=== PATIENT | female | born 1990 | race Two or more races ===

== ENCOUNTER 2018-03-17 14:54 | Emergency (ER) | payer MEDICAID ==
[~2018-03-17] VITALS: Ht 160 cm; Wt 122.5 kg
[2018-03-17] MEDS ORDERED: levETIRAcetam 500 MG TABLET PO ONE (15:15)
--- NOTE | 2018-03-17 15:24 | PHYS DOC ---
Adult General Chief Complaint Chief Complaint: SEIZURE HPI HPI Patient is a 27 year old female who presents with a witnessed seizure that occurred today. The patient states that she normally takes 1500 mg of Keppra twice a day. She recently moved here from [place] and in working with the insurance company it did not get refilled in a timely manner. She states that she has been out of her Keppra for approximately week and a half. She states that she did have an abrasion to her tongue but denies any other injury. She has a follow-up appointment with neurology on March 27, 2017. Review of Systems Review of Systems Constitutional: Denies fever or chills [] Eyes: Denies change in visual acuity, redness, or eye pain [] HENT: See history of present illness Respiratory: Denies cough or shortness of breath [] Cardiovascular: No additional information not addressed in HPI [] GI: Denies abdominal pain, nausea, vomiting, bloody stools or diarrhea [] : Denies dysuria or hematuria [] Musculoskeletal: Denies back pain or joint pain [] Integument: Denies rash or skin lesions [] Neurologic: See history of present illness Endocrine: Denies polyuria or polydipsia [] All other systems were reviewed and found to be within normal limits, except as documented in this note. Current Medications Current Medications Current Medications Medications (Trade) Dose Ordered Sig/Joanie Start Time Stop Time Status Last Admin Dose Admin Acetaminophen (Tylenol) 1,000 mg 1X ONCE 03/17/18 16:00 03/17/18 16:04 DC 03/17/18 16:14 1,000 MG Levetiracetam (Keppra) 1,500 mg 1X ONCE 03/17/18 15:15 03/17/18 15:31 DC Levetiracetam 1000 mg/Dextrose 110 ml @ 440 mls/hr 1X ONCE 03/17/18 16:00 03/17/18 16:14 DC 03/17/18 15:45 440 MLS/HR Allergies Allergies Allergies Coded Allergies Type Severity Reaction Last Updated Verified No Known Drug Allergies 03/17/18 No Physical Exam Physical Exam Constitutional: Well developed, well nourished, no acute distress, non-toxic appearance. [] HENT: Normocephalic, atraumatic, bilateral external ears normal, oropharynx moist, abrasion noted to the patient's left tongue Eyes: PERRLA, EOMI, conjunctiva normal, no discharge. [] Neck: Normal range of motion, no tenderness, supple, no stridor. [] Cardiovascular:Heart rate regular rhythm, no murmur [] Lungs & Thorax: Bilateral breath sounds clear to auscultation [] Abdomen: Bowel sounds normal, soft, no tenderness, no masses, no pulsatile masses. [] Skin: Warm, dry, no erythema, no rash. [] Back: No tenderness, no CVA tenderness. [] Extremities: No tenderness, no cyanosis, no clubbing, ROM intact, no edema. [] Neurologic: Alert and oriented X 3, normal motor function, normal sensory function, no focal deficits noted. [] Psychologic: Affect normal, judgement normal, mood normal. [] Current Patient Data Vital Signs Vital Signs Date Time Temp Pulse Resp B/P (MAP) Pulse Ox O2 Delivery O2 Flow Rate FiO2 03/17/18 14:54 98.2 98 16 129/64 (85) 97 Room Air 98.2 EKG EKG [] Radiology/Procedures Radiology/Procedures [] Course & Med Decision Making Course & Med Decision Making Pertinent Labs and Imaging studies reviewed. (See chart for details) []The patient was given a gram of Keppra IV in the emergency department. Dragon Disclaimer Dragon Disclaimer This electronic medical record was generated, in whole or in part, using a voice recognition dictation system. Departure Departure Impression: Primary Impression: Seizure Disposition: 01 HOME, SELF-CARE Condition: STABLE Patient Instructions: Seizure, Adult Additional Instructions: Take the medication as prescribed. Keep your follow-up appointment with your neurologist. If worsening return to the emergency department. Scripts Levetiracetam (KEPPRA) 750 Mg Tablet 1500 MG PO BID for seizure for 30 Days, #120 TAB Prov: BISI SALMON ARCHITECTURAL TECHNOLOGIST 03/17/18 BISI SALMON APRN Mar 17, 2018 15:24
[2018-03-17] MEDS ORDERED: levETIRAcetam 1,000 MG in IV DEXTROSE 5% 100ML 100 ML IV ONE (16:00)
[2018-03-17] MEDS ORDERED: ACETAMINOPHEN 500 MG TABLET PO ONE (16:00)
[2018-03-17 16:30] VITALS: BP 115/71
[2018-03-17] MEDS ORDERED: LEVE750T41 PO (16:31)
== END 2018-03-17 16:41 | disposition home or self-care (01) ==
LOC: ER 14:54
DX: S00.512A Abrasion of oral cavity, initial encounter (principal); R56.9 Unspecified convulsions; X58.XXXA Exposure to other specified factors, initial encounter; Y93.89 Activity, other specified; Y92.89 Other specified places as the place of occurrence of the external cause; Y99.8 Other external cause status
CPT/HCPCS: 36415; 80177; 96365; 99285; J1953; 99283-25

== ENCOUNTER 2018-03-31 09:46 | Emergency (ER) | payer MEDICAID ==
[~2018-03-31] VITALS: Ht 160 cm; Wt 124.7 kg
[~2018-03-31 09:46] MED LIST: LEVE750T41 PO
[2018-03-31 10:12] VITALS: BP 140/72
[2018-03-31] MEDS ORDERED: PRED20TA PO (10:28)
[2018-03-31] MEDS ORDERED: HYDR-3164 PO (10:28)
--- NOTE | 2018-03-31 10:41 | PHYS DOC ---
Past Medical History Past Medical History: Anxiety, Depression, Seizure Past Surgical History: No Surgical History Alcohol Use: None Drug Use: Marijuana Adult General Chief Complaint Chief Complaint: LOWER EXT PAIN HPI HPI Patient is a 27 year old female who presents with left leg pain. Patient has what she describes to be a burning sensation over the lateral aspect of the left thigh. She's been having symptoms over the last several days. She denies prior history of similar symptoms but does endorse a remote history of back injury and chronic back pain. No weakness. No difficulty with ambulation. Pain occurs both at rest and with activity. No fever or chills. No urinary symptoms. There are no aggravating or alleviating factors. She states the pain seems to be just underneath or inside the skin. Review of Systems Review of Systems Constitutional: Denies fever or chills Eyes: Denies change in visual acuity HENT: Denies Respiratory: Denies Cardiovascular: No additional information not addressed in HPI GI: Denies abdominal pain Musculoskeletal: Denies back pain or joint pain Integument: Denies rash or skin lesions Neurologic: Denies headache or focal neurologic complaints All other systems were reviewed and found to be within normal limits, except as documented in this note. Allergies Allergies Allergies Coded Allergies Type Severity Reaction Last Updated Verified No Known Drug Allergies 03/17/18 No Physical Exam Physical Exam Constitutional: Well developed, well nourished, no acute distress, non-toxic appearance HENT: Normocephalic, atraumatic, bilateral external ears normal, oropharynx moist Eyes: PERRLA, EOMI, conjunctiva normal Neck: Normal range of motion, no tenderness Cardiovascular:Heart rate regular rhythm, no murmur Lungs & Thorax: Bilateral breath sounds clear to auscultation Skin: Warm, dry, no erythema, no rash Extremities: Normal exam of left LE Neurologic: Alert and oriented X 3 EKG EKG [] Radiology/Procedures Radiology/Procedures [] Course & Med Decision Making Course & Med Decision Making Pertinent Labs and Imaging studies reviewed. (See chart for details) Patient was evaluated on arrival to her room. She has symptoms that are classic for neuralgia paresthetica. This condition is discussed with her and explained in detail and all of her questions are answered. Patient was placed on a short course of steroids. Tramadol was the next medicine of choice but this would interact with too many of her chronic medications so she was simply given some [place] for severe pain symptoms. Patient was advised to follow-up with her primary care doctor as needed. Carlton Disclaimer Maritzaon Disclaimer This electronic medical record was generated, in whole or in part, using a voice recognition dictation system. Departure Departure Impression: Primary Impression: Meralgia paresthetica of left side Disposition: HOME, SELF-CARE Condition: GOOD Patient Instructions: Neurapraxia Additional Instructions: Your diagnosis is Meralgia Paresthetica. There is not a good information sheet in the computer system to provide for this diagnosis. Please look it up on the internet and follow up with your primary doctor if your symptoms persist. Scripts Hydrocodone/Apap 5-325 (NORCO 5-325 TABLET) 1 Each Tablet 1-2 EACH PO PRN Q6HRS PRN for SEVERE PAIN, #15 as needed for pain Prov: NAV MATTHEW DO 03/31/18 Prednisone (PREDNISONE) 20 Mg Tablet 20 MG PO UD, #20 TAB Take 3 tablets with breakfast for 3 days. Then take 2 tablets daily with breakfast for 3 days. Then take one tablet with breakfast for 3 days. Then take one half tablet until gone Prov: NAV MATTHEW DO 03/31/18 NAV MATTHEW DO Mar 31, 2018 10:40
== END 2018-03-31 10:35 | disposition home or self-care (01) ==
LOC: ER 09:46
DX: G57.12 Meralgia paresthetica, left lower limb (principal); F41.9 Anxiety disorder, unspecified; F32.9 Major depressive disorder, single episode, unspecified
CPT/HCPCS: 99283

== ENCOUNTER 2018-04-10 19:20 | Observation (INO) | payer MEDICAID ==
[~2018-04-10] VITALS: Ht 160 cm; Wt 131.6 kg
[~2018-04-10 19:20] MED LIST changes: +HYDR-3164 PO; +PRED20TA PO
[2018-04-10] MEDS ORDERED: IV NORMAL SALINE 500ML BAG 500 ML IV ONE (20:30)
[2018-04-10 20:32] LABS: BASO % 0 % (0-3); EOS % 0 % (0-3); HEMATOCRIT 41.4 % (36.0-47.0); HEMOGLOBIN 13.8 g/dL (12.0-15.5); LYMPH # 0.7 x10^3/uL (1.0-4.8); LYMPH % 8 % (24-48); MEAN CORPUSCULAR HEMOGLOBIN 30 pg (25-35); MEAN CORPUSCULAR HGB CONC 33 g/dL (31-37); MEAN CORPUSCULAR VOLUME 89 fL (79-100); MONO # 0.2 x10^3/uL (0.0-1.1); MONO % 3 % (0-9); NEUT # 7.4 x10^3uL (1.8-7.7); NEUT % 89 % (31-73); PLATELET COUNT 243 x10^3/uL (140-400); RED BLOOD COUNT 4.66 x10^6/uL (3.50-5.40); RED CELL DISTRIBUTION WIDTH 14.4 % (11.5-14.5); WHITE BLOOD COUNT 8.3 x10^3/uL (4.0-11.0)
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
[2018-04-10 20:39] LABS: CALCIUM 8.8 mg/dL (8.5-10.1); CREATININE 0.7 mg/dL (0.6-1.0); GFR 100.4; POTASSIUM 3.4 mmol/L (3.5-5.1)
[2018-04-10 20:45] LABS: ALBUMIN 3.4 g/dL (3.4-5.0); ALBUMIN/GLOBULIN RATIO 0.8 (1.0-1.7); TOTAL BILIRUBIN 0.7 mg/dL (0.2-1.0); TOTAL PROTEIN 7.8 g/dL (6.4-8.2)
--- NOTE | 2018-04-10 21:57 | EKG ---
[facility] [address] [place] [address] Test Date: 2018-04-10 Test Time: 19:44:54 Pat Name: DAVID AYALA Department: Room: Gender: F Juvenile Court Judge: : 1990 Requested By: JAMARCUS ARNOLD Order Number: [id number] Reading MD: Measurements Intervals [place] Rate: 85 P: 154 IN: 148 QRS: 40 QRSD: 82 T: 9 QT: 362 QTc: 436 Interpretive Statements SUPRAVENTRICULAR RHYTHM ST & T ABNORMALITY, CONSIDER RECENT HIGH LATERAL MYOCARDIAL OR PERICARDIAL DAMAGE NON SPECIFIC ST DEPRESSION ABNORMAL ECG No previous ECG available for comparison
[2018-04-10 23:07] LABS: BILIRUBIN,URINE NEGATIVE (NEG); CLARITY,URINE CLOUDY; COLOR,URINE YELLOW; NITRITE,URINE NEGATIVE (NEG); PROTEIN,URINE NEGATIVE (NEG-TRACE)
[2018-04-10 23:11] LABS: RBC,URINE 0 /HPF (0-2)
[2018-04-10 23:12] LABS: BACTERIA,URINE 0 /HPF (0-FEW); SQUAMOUS EPITHELIAL CELL,UR OCC /LPF
[2018-04-10 23:20] LABS: AMPHETAMINE/METHAMPHETAMINE NEG (NEG); BARBITURATES NEG (NEG); BENZODIAZEPINES NEG (NEG); CANNABINOIDS POS (NEG); COCAINE NEG (NEG); METHADONE NEG (NEG); OPIATES NEG (NEG); PHENCYCLIDINE NEG (NEG)
[2018-04-11] VITALS (8 sets, daily range): BP systolic 91–114; BP diastolic 49–68
--- NOTE | 2018-04-11 | RAD ---
CT head without contrast PQRS statement: CT scans at this facility use dose reduction including either automated exposure control, iterative reconstructions, and /or weight based radiation dosing via mA and kV modification when appropriate to reduce radiation dose to as low as reasonably achievable. HISTORY: Seizure. TECHNIQUE: [address] imaging skull base to vertex. FINDINGS: No intracranial hemorrhage, mass, hydrocephalus, extra-axial fluid collections or infarction. No acute ischemic change. Orbits, mastoids, paranasal sinuses and bones are unremarkable. IMPRESSION: No acute intracranial CT abnormality. Electronically signed by: Wili Verduzco MD (04/10/2018 11:55 PM) [id number]
[2018-04-11] MEDS ORDERED: ACET325T9 PO ×2 (01:05)
[2018-04-11] MEDS: ACETAMINOPHEN 325 MG TABLET. PO PRN ×3 (01:26→16:45)
[2018-04-11] MEDS: levETIRAcetam 500 MG TABLET PO SCH ×3 (01:26→21:42)
[2018-04-11 03:45] LABS: BASO % 0 % (0-3); EOS % 0 % (0-3); HEMATOCRIT 36.6 % (36.0-47.0); HEMOGLOBIN 12.2 g/dL (12.0-15.5); LYMPH # 0.9 x10^3/uL (1.0-4.8); LYMPH % 16 % (24-48); MEAN CORPUSCULAR HEMOGLOBIN 30 pg (25-35); MEAN CORPUSCULAR HGB CONC 34 g/dL (31-37); MEAN CORPUSCULAR VOLUME 88 fL (79-100); MONO # 0.3 x10^3/uL (0.0-1.1); MONO % 5 % (0-9); NEUT # 4.5 x10^3uL (1.8-7.7); NEUT % 78 % (31-73); PLATELET COUNT 229 x10^3/uL (140-400); RED BLOOD COUNT 4.15 x10^6/uL (3.50-5.40); RED CELL DISTRIBUTION WIDTH 14.2 % (11.5-14.5); WHITE BLOOD COUNT 5.8 x10^3/uL (4.0-11.0)
[2018-04-11 04:00] LABS: CALCIUM 8.1 mg/dL (8.5-10.1); CREATININE 0.7 mg/dL (0.6-1.0); GFR 100.4
[2018-04-11 04:10] LABS: POTASSIUM 2.9 mmol/L (3.5-5.1)
[2018-04-11] MEDS ORDERED: POTASSIUM CHLORIDE 20 MEQ TABLET.ER. PO ONE ×2 (04:30→16:45)
--- NOTE | 2018-04-11 12:54 | SSS ---
ADMIT DATE: 04/11/2018 CHIEF COMPLAINT: Seizure. HISTORY OF PRESENT ILLNESS: The patient is a pleasant 27-year-old female who has a history of seizures. They seemed to me to be pseudoseizure. She had 15 yesterday and came in for an evaluation. When she got to the ER, she did not have any more seizures. Surprisingly, she is on Keppra. I suspect they have put her on that to be safe. I discussed the case with the ER physician. We have admitted her. We have consulted Neurology this morning. I have examined her where she is better. I plan to discharge if okay with Neurology. 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 ALLERGIES: None. FAMILY HISTORY: Hypertension. SOCIAL HISTORY: She does not drink, smoke or take drugs. She is in nursing school. MEDICATIONS: She is on [place], Tylenol, Keppra 1500 b.i.d. and prednisone. REVIEW OF SYSTEMS: GENERAL: No history of weight change, weakness or fevers. SKIN: No bruising, hair changes or rashes. EYES: No blurred, double or loss of vision. NOSE AND THROAT: No history of nosebleeds, hoarseness or sore throat. HEART: No history of palpitations, chest pain or shortness of breath on exertion. LUNGS: Denies cough, hemoptysis, wheezing or shortness of breath. GASTROINTESTINAL: Denies changes in appetite, nausea, vomiting, diarrhea or constipation. GENITOURINARY: No history of frequency, urgency, hesitancy or nocturia. NEUROLOGIC: Denies history of numbness, tingling, tremor or weakness. PSYCHIATRIC: No history of panic, anxiety or depression. ENDOCRINE: No history of heat or cold intolerance, polyuria or polydipsia. EXTREMITIES: Denies muscle weakness, joint pain, pain on walking or stiffness. PHYSICAL EXAMINATION: VITAL SIGNS: Temperature afebrile, pulse 74, respirations 18, blood pressure 132/90. GENERAL: She is alert, cooperative, in no apparent distress. HEART: Normal S1, S2. LUNGS: Clear. ABDOMEN: Soft. EXTREMITIES: No edema. SKIN: No rashes. ENDOCRINE: No thyromegaly. LYMPHATICS: No cervical nodes. HEMATOPOIETIC: No bruising. PSYCHIATRIC: She is anxious. NEUROLOGIC: No focal deficits. LABORATORY DATA: Her Hematology is normal. Her electrolytes were normal other than a low potassium, which I have replaced. ASSESSMENT AND PLAN: Resolving seizures, suspect probable pseudoseizures. We will go ahead and consult Neurology, but I suspect will be allowed to go home this afternoon. DISPOSITION: Home. ACTIVITY: As tolerated. DIET: Low sodium. MEDICATIONS: Please see MRAD. TOTAL TIME: 32 minutes. DARA SIMEON DO DR: NISA/hakan JOB#: [id number] / [id number]
--- NOTE | 2018-04-11 15:47 | NUR ---
Discussed discharge with patient. Patient kind of upset, wanting us to look into cardiac history before discharge. Says she has been struggling with chest pain and "chest heart fluttering" and wants us to look into it. Says EMS told her they could see "heart fluttering" on the monitor. I looked at ED note, says patient had PVC's in ER, I educated her on PVC's and low K+ and told her there was a possible connection between the 2. I did pass all of this all on to Dr. León, he feels at this point she is medically stable and there are no further orders necessary at this point. Patient also frustrated, says she feels she was not able to vocalize all of her concerns to Dr. Hirsch. Really wanted Dr. Hirsch to know she was having leg numbness and burning on her L upper thigh. I discussed this with Dr. Hirsch, and let Dr. Hirsch patient would feel more comfortable leaving tomorrow. Dr. Hirsch agreed with Dr. León, said ok to do EEG in outpatient if unable to do today. Asked Dr. León if we could recheck K+, we did, it is 3.3, ok to go ahead and replace again. Will notify Dr. León of patient's concerns.
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
--- NOTE | 2018-04-11 16:06 | NUR ---
Patient now complaining of new chest pain, STAT EKG ordered and ICU supercharger mechanic notified. manager perioperative Norma on unit, she was notified as well.
--- NOTE | 2018-04-11 16:19 | EKG ---
[facility] [address] [place] [address] Test Date: 2018-04-11 Test Time: 16:14:24 Pat Name: DAVID AYALA Department: Room: 654 1 Gender: F Cap Sizer: CHAVA : 1990 Requested By: DARA SIMEON Order Number: [id number] Reading MD: Measurements Intervals [place] Rate: 71 P: 28 ID: [id number] QRS: 80 QRSD: 88 T: 31 QT: 442 QTc: 486 Interpretive Statements SINUS RHYTHM QRS(T) CONTOUR ABNORMALITY CONSIDER ANTEROSEPTAL MYOCARDIAL DAMAGE PROLONGED QT POSSIBLY ABNORMAL ECG RI6.01 Unconfirmed report No previous ECG available for comparison
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
--- NOTE | 2018-04-11 17:43 | NUR ---
Pt states she has chest discomfort over her left breast area. This pain is reproducible when area rubbed. Pt states she had several grand mal seizures yesterday. Explained to patient that the pain she is experiencing may be muscle pain from the seizures yesterday. Explained the EKG looked normal and would get Troponin to check heart muscle. Pt staying on the 6S. Addendum: 04/11/18 at 1747 by INGRID BUSTILLOS RN Amended: Links added.
--- NOTE | 2018-04-11 19:09 | NUR ---
Around 183, as EEG was being finished, patient called to say she was having a seizure. Was able to talk while having seizure and follow commands. Paged Dr. Hirsch per protocol to let her know.
[2018-04-12 03:10] VITALS: BP 94/51
[2018-04-12 07:05] VITALS: BP 103/53
[2018-04-12 07:56] LABS: CALCIUM 8.7 mg/dL (8.5-10.1); CREATININE 0.5 mg/dL (0.6-1.0)
[2018-04-12 08:04] LABS: CHOLESTEROL/HDL RATIO 2.7
--- NOTE | 2018-04-12 09:05 | NUR ---
MADDY phoned [facility] team for assessment and evaluation. Jeremy will come in to see pt. Addendum: 04/12/18 at 1102 by HARSHAL CASTAÑEDA MADDY following. Pt will f/u with [facility] jamin vt.
--- NOTE | 2018-04-12 09:13 | PDOC2 ---
CARDIAC CONSULT DATE OF CONSULT Date of Consult DATE: 04/12/18 TIME: 09:06 REASON FOR CONSULT Reason for Consult: One week of fluttering in chest and chest pain. REFERRING PHYSICIAN Referring Physician: Dr. León SOURCE Source: Chart review, Patient HISTORY OF PRESENT ILLNESS HISTORY OF PRESENT ILLNESS This is a 27 yo female who presented secondary to recurrent seizures and chest pain. Reports up to 15 seizures on day of arrival. Chest pain has been present for the last week. Located in her central chest initially. Now located left lateral breast area. Describes as stabbing in nature. Worsened with deep breath. Breathing limited due to pain, but not specifically short of breath. No dizziness, diaphoresis, nausea/vomiting. Has had intermittent palpitations; more frequent over the last week. Occurs at rest and last approximately 20 seconds and resolves without intervention. Feels as if she is having anxiety. Also complaining of burning pain in her left thigh with some mild swelling. PAST MEDICAL HISTORY Cardiovascular: No pertinent hx Pulmonary: No pertinent hx CENTRAL NERVOUS SYSTEM: Seizure GI: No pertinent hx Heme/Onc: No pertinent hx Psych: Anxiety Musculoskeletal: low back pain Rheumatologic: No pertinent hx Infectious disease: No pertinent hx ENT: No pertinent hx Renal/: No pertinent hx Endocrine: No pertinent hx Dermatology: No pertinent hx PAST SURGICAL HISTORY Past Surgical History: No pertinent history FAMILY HISTORY Family History: Heart Disease SOCIAL HISTORY Smoke: No ALCOHOL: none Drugs: Marijuana Lives: with Family CURRENT MEDICATIONS CURRENT MEDICATIONS Current Medications Medications (Trade) Dose Ordered Sig/Joanie Route PRN Reason Start Time Stop Time Status Last Admin Dose Admin Potassium Chloride (Klor-Con) 40 meq 1X ONCE PO 04/11/18 16:45 04/11/18 16:46 DC 04/11/18 16:45 ALLERGIES ALLERGIES: Coded Allergies: No Known Drug Allergies (Unverified , 03/17/18) ROS Review of System 14 point ROS conducted with pertinent positives noted above in HPI. PHYSICAL EXAM General: Alert, Oriented X3, Cooperative, No acute distress HEENT: Atraumatic, Mucous membr. moist/pink Lungs: Clear to auscultation, Normal air movement Heart: Regular rate, Normal S1, Normal S2, No murmurs Abdomen: Soft, No tenderness Extremities: No edema, Normal pulses Skin: No significant lesion Neuro: Normal speech, Sensation intact Psych/Mental Status: Mental status NL, Mood NL MUSCULOSKELETAL: Osteoarthritic changes both hands VITALS VITALS Vital Signs Date Time Temp Pulse Resp B/P (MAP) Pulse Ox O2 Delivery O2 Flow Rate FiO2 04/12/18 07:05 97.6 61 17 103/53 (70) 95 Room Air 97.6 LABS Lab: Laboratory Tests Test 04/11/18 13:50 04/11/18 16:30 04/12/18 06:05 Potassium Level 3.3 mmol/L (3.5-5.1) 4.0 mmol/L (3.5-5.1) Magnesium Level 2.0 mg/dL (1.8-2.4) Troponin I Quantitative < 0.017 ng/mL (0.000-0.055) < 0.017 ng/mL (0.000-0.055) Sodium Level 143 mmol/L (136-145) Chloride Level 108 mmol/L (98-107) Carbon Dioxide Level 27 mmol/L (21-32) Anion Gap 8 (6-14) Blood Urea Nitrogen 8 mg/dL (7-20) Creatinine 0.5 mg/dL (0.6-1.0) Estimated GFR (Cockcroft-Gault) 148.0 Glucose Level 92 mg/dL (70-99) Calcium Level 8.7 mg/dL (8.5-10.1) Triglycerides Level 41 mg/dL (0-150) Cholesterol Level 140 mg/dL (0-200) LDL Cholesterol, Calculated 80 mg/dL (0-100) VLDL Cholesterol, Calculated 8 mg/dL (0-40) Non-HDL Cholesterol Calculated 88 mg/dL (0-129) HDL Cholesterol 52 mg/dL (40-60) Cholesterol/HDL Ratio 2.7 ASSESSMENT/PLAN ASSESSMENT/PLAN 1. Seizures; on Keppra. 2. Chest pain, noncardiac. AMI ruled out. Most probably pleuritic as pain worsened with deep breathing. 3. Palpitations; possibly anxiety related. Patient reports palpitations while on unit; no arrhythmias correlating on telemetry. 4. Hypokalemia; replaced 5. Anxiety Recommendations Will check TSH. If palpitations recurrent, could consider outpatient event monitor to rule out tachyarrhythmias and echocardiogram when she is able to get [place] Medicaid. Management as per IM Continued treatment of seizures as per neurology Supportive care IRENE HONG APRN Apr 12, 2018 09:13
[2018-04-12] MEDS: levETIRAcetam 500 MG TABLET PO SCH (09:55)
[2018-04-12 10:40] VITALS: BP 106/62
--- NOTE | 2018-04-12 11:36 | CARD ---
MR#: [id number] Date of Study: 04/12/2018 Ordering Physician: JOSE GANDHI, Referring Physician: Guille CROW: Isabella Baileyluiserica APPROVED REPORT EXAM: Two-dimensional and M-mode echocardiogram with Doppler and color Doppler. Other Information Quality : GoodHR: 61bpm Rhythm : NSR INDICATION Chest Pain 2D DIMENSIONS RVDd2.6 (2.9-3.5cm)Left Atrium(2D)3.6 (1.6-4.0cm) IVSd1.1 (0.7-1.1cm)Aortic Root(2D)2.4 (2.0-3.7cm) LVDd5.0 (3.9-5.9cm)LVOT Diameter2.2 (1.8-2.4cm) PWd1.2 (0.7-1.1cm)LVDs3.6 (2.5-4.0cm) FS (%) 28.7 %SV66.2 ml LVEF(%)55.0 (>50%) Aortic Valve AoV Peak Elie.157.1cm/sAoV VTI32.8cm AO Peak GR.9.9mmHgLVOT Peak Elie.104.6cm/s LVOT VTI 22.12cmAO Mean GR.5mmHg KANG (VMAX)1.32lh4HND (VTI)2.48cm2 Mitral Valve MV E Pxxxuhlo068.2cm/sMV DECEL [id number] MV A Wylxaoih03.0cm/sMV YSY80fp E/A Ratio1.5MVA (PHT)3.39cm2 TDI E/Lateral E'8.1E/Medial E'10.3 Pulmonary Valve PV Peak Itsujbyw845.6cm/sPV Peak Grad.4mmHg Tricuspid Valve TR P. [id number]/sRAP [id number] TR Peak Gr.00tiJdKOYX79tpMq Pulmonary Vein S1 Cvovsrwg88.7cm/sD2 Yzzxmbxs36.8cm/s PVa [id number] LEFT VENTRICLE The left ventricle is normal size. There is borderline concentric left ventricular hypertrophy. The l eft ventricular systolic function is normal. The Ejection Fraction is 55-60%. There is normal LV segm ental wall motion. The left ventricular diastolic function and filling is normal for age. RIGHT VENTRICLE The right ventricle is normal size. There is normal right ventricular wall thickness. The right ventr icular systolic function is normal. ATRIA The left atrium size is normal. The right atrium size is normal. The interatrial septum is intact wit h no evidence for an atrial septal defect or patent foramen ovale as noted on 2-D or Doppler imaging. AORTIC VALVE The aortic valve is normal in structure and function. Doppler and Color Flow revealed no significant aortic regurgitation. There is no significant aortic valvular stenosis. MITRAL VALVE The mitral valve is normal in structure and function. There is no evidence of mitral valve prolapse. There is no mitral valve stenosis. Doppler and Color-flow revealed trace mitral regurgitation. TRICUSPID VALVE The tricuspid valve is normal in structure and function. Doppler and Color Flow revealed trace tricus pid regurgitation. There is no tricuspid valve stenosis. PULMONIC VALVE The pulmonic valve is not well visualized. Doppler and Color Flow revealed no pulmonic valvular regur gitation. GREAT VESSELS The aortic root is normal in size. The IVC is normal in size and collapses >50% with inspiration. PERICARDIAL EFFUSION There is no evidence of significant pericardial effusion. Critical Notification Critical Value: No <Conclusion> The left ventricular systolic function is normal. The Ejection Fraction is 55-60%. There is normal LV segmental wall motion. Trace mitral regurgitation. Trace tricuspid regurgitation. There is no evidence of significant pericardial effusion. Signed by : Jacobo Segal, Electronically Approved : 04/12/2018 11:33:56
[2018-04-12] MEDS ORDERED: CITALOPRAM 20 MG TABLET. PO SCH (12:45)
--- NOTE | 2018-04-12 12:51 | PDOC ---
PROGRESS NOTES Chief Complaint Chief Complaint pseudo seizure History of Present Illness History of Present Illness Patient seen and examined this morning. 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 She seems to be doing great. Nurses report that they were called in yesterday because she said she was having a seizure. Discussed importance of illicit drug abstinence and probable discharge today. Vitals Vitals Vital Signs Date Time Temp Pulse Resp B/P (MAP) Pulse Ox O2 Delivery O2 Flow Rate FiO2 04/12/18 10:40 97.5 68 18 106/62 (77) 97 Room Air 97.5 Physical Exam General: Alert, Oriented X3, Cooperative, No acute distress Heart: Regular rate, Normal S1, Normal S2, No murmurs Abdomen: Soft, No tenderness Extremities: No clubbing, No cyanosis, No edema, Normal pulses Skin: No rashes, No significant lesion Labs LABS Laboratory Tests Test 04/11/18 13:50 04/11/18 16:30 04/12/18 06:05 Potassium Level 3.3 mmol/L (3.5-5.1) 4.0 mmol/L (3.5-5.1) Magnesium Level 2.0 mg/dL (1.8-2.4) Troponin I Quantitative < 0.017 ng/mL (0.000-0.055) < 0.017 ng/mL (0.000-0.055) Sodium Level 143 mmol/L (136-145) Chloride Level 108 mmol/L (98-107) Carbon Dioxide Level 27 mmol/L (21-32) Anion Gap 8 (6-14) Blood Urea Nitrogen 8 mg/dL (7-20) Creatinine 0.5 mg/dL (0.6-1.0) Estimated GFR (Cockcroft-Gault) 148.0 Glucose Level 92 mg/dL (70-99) Calcium Level 8.7 mg/dL (8.5-10.1) Triglycerides Level 41 mg/dL (0-150) Cholesterol Level 140 mg/dL (0-200) LDL Cholesterol, Calculated 80 mg/dL (0-100) VLDL Cholesterol, Calculated 8 mg/dL (0-40) Non-HDL Cholesterol Calculated 88 mg/dL (0-129) HDL Cholesterol 52 mg/dL (40-60) Cholesterol/HDL Ratio 2.7 Review of Systems Review of Systems heart: denies cp lung: denies soa Assessment and Plan Assessmemt and Plan Assessment: 1. Pseudo-seizure 2. obesity 3. history of depression Plan: 1. probable discharge today 2, PT/OT 3. seizure medications per neurology 4. labs 5. appreciate subspecialty input Comment Review of Relevant I have reviewed the following items ruddy (where applicable) has been applied. Labs Laboratory Tests Test 04/10/18 19:55 04/10/18 22:55 04/11/18 02:55 04/11/18 13:50 White Blood Count 8.3 x10^3/uL (4.0-11.0) 5.8 x10^3/uL (4.0-11.0) Red Blood Count 4.66 x10^6/uL (3.50-5.40) 4.15 x10^6/uL (3.50-5.40) Hemoglobin 13.8 g/dL (12.0-15.5) 12.2 g/dL (12.0-15.5) Hematocrit 41.4 % (36.0-47.0) 36.6 % (36.0-47.0) Mean Corpuscular Volume 89 fL (79-100) 88 fL (79-100) Mean Corpuscular Hemoglobin 30 pg (25-35) 30 pg (25-35) Mean Corpuscular Hemoglobin Concent 33 g/dL (31-37) 34 g/dL (31-37) Red Cell Distribution Width 14.4 % (11.5-14.5) 14.2 % (11.5-14.5) Platelet Count 243 x10^3/uL (140-400) 229 x10^3/uL (140-400) Neutrophils (%) (Auto) 89 % (31-73) 78 % (31-73) Lymphocytes (%) (Auto) 8 % (24-48) 16 % (24-48) Monocytes (%) (Auto) 3 % (0-9) 5 % (0-9) Eosinophils (%) (Auto) 0 % (0-3) 0 % (0-3) Basophils (%) (Auto) 0 % (0-3) 0 % (0-3) Neutrophils # (Auto) 7.4 x10^3uL (1.8-7.7) 4.5 x10^3uL (1.8-7.7) Lymphocytes # (Auto) 0.7 x10^3/uL (1.0-4.8) 0.9 x10^3/uL (1.0-4.8) Monocytes # (Auto) 0.2 x10^3/uL (0.0-1.1) 0.3 x10^3/uL (0.0-1.1) Eosinophils # (Auto) 0.0 x10^3/uL (0.0-0.7) 0.0 x10^3/uL (0.0-0.7) Basophils # (Auto) 0.0 x10^3/uL (0.0-0.2) 0.0 x10^3/uL (0.0-0.2) Sodium Level 139 mmol/L (136-145) 141 mmol/L (136-145) Potassium Level 3.4 mmol/L (3.5-5.1) 2.9 mmol/L (3.5-5.1) 3.3 mmol/L (3.5-5.1) Chloride Level 102 mmol/L (98-107) 103 mmol/L (98-107) Carbon Dioxide Level 25 mmol/L (21-32) 28 mmol/L (21-32) Anion Gap 12 (6-14) 10 (6-14) Blood Urea Nitrogen 9 mg/dL (7-20) 11 mg/dL (7-20) Creatinine 0.7 mg/dL (0.6-1.0) 0.7 mg/dL (0.6-1.0) Estimated GFR (Cockcroft-Gault) 100.4 100.4 BUN/Creatinine Ratio 13 (6-20) Glucose Level 85 mg/dL (70-99) 111 mg/dL (70-99) Calcium Level 8.8 mg/dL (8.5-10.1) 8.1 mg/dL (8.5-10.1) Total Bilirubin 0.7 mg/dL (0.2-1.0) Aspartate Amino Transf (AST/SGOT) 19 U/L (15-37) Alanine Aminotransferase (ALT/SGPT) 27 U/L (14-59) Alkaline Phosphatase 72 U/L (46-116) Total Protein 7.8 g/dL (6.4-8.2) Albumin 3.4 g/dL (3.4-5.0) Albumin/Globulin Ratio 0.8 (1.0-1.7) Urine Color Yellow Urine Clarity Cloudy Urine pH 6.0 Urine Specific [place] >=1.030 Urine Protein Negative mg/dL (NEG-TRACE) Urine Glucose (UA) Negative mg/dL (NEG) Urine Ketones (Stick) Trace mg/dL (NEG) Urine Blood Negative (NEG) Urine Nitrite Negative (NEG) Urine Bilirubin Negative (NEG) Urine Urobilinogen Dipstick 1.0 mg/dL (0.2 mg/dL) Urine Leukocyte Esterase Negative (NEG) Urine RBC 0 /HPF (0-2) Urine WBC 1-4 /HPF (0-4) Urine Squamous Epithelial Cells Occ /LPF Urine Bacteria 0 /HPF (0-FEW) Urine Mucus Mod /LPF Urine Opiates Screen Neg (NEG) Urine Methadone Screen Neg (NEG) Urine Barbiturates Neg (NEG) Urine Phencyclidine Screen Neg (NEG) Urine Amphetamine/Methamphetamine Neg (NEG) Urine Benzodiazepines Screen Neg (NEG) Urine Cocaine Screen Neg (NEG) Urine Cannabinoids Screen Pos (NEG) Urine Ethyl Alcohol Neg (NEG) Magnesium Level 2.0 mg/dL (1.8-2.4) Test 04/11/18 16:30 04/12/18 06:05 Troponin I Quantitative < 0.017 ng/mL (0.000-0.055) < 0.017 ng/mL (0.000-0.055) Sodium Level 143 mmol/L (136-145) Potassium Level 4.0 mmol/L (3.5-5.1) Chloride Level 108 mmol/L (98-107) Carbon Dioxide Level 27 mmol/L (21-32) Anion Gap 8 (6-14) Blood Urea Nitrogen 8 mg/dL (7-20) Creatinine 0.5 mg/dL (0.6-1.0) Estimated GFR (Cockcroft-Gault) 148.0 Glucose Level 92 mg/dL (70-99) Calcium Level 8.7 mg/dL (8.5-10.1) Triglycerides Level 41 mg/dL (0-150) Cholesterol Level 140 mg/dL (0-200) LDL Cholesterol, Calculated 80 mg/dL (0-100) VLDL Cholesterol, Calculated 8 mg/dL (0-40) Non-HDL Cholesterol Calculated 88 mg/dL (0-129) HDL Cholesterol 52 mg/dL (40-60) Cholesterol/HDL Ratio 2.7 Laboratory Tests Test 04/11/18 13:50 04/11/18 16:30 04/12/18 06:05 Potassium Level 3.3 mmol/L (3.5-5.1) 4.0 mmol/L (3.5-5.1) Magnesium Level 2.0 mg/dL (1.8-2.4) Troponin I Quantitative < 0.017 ng/mL (0.000-0.055) < 0.017 ng/mL (0.000-0.055) Sodium Level 143 mmol/L (136-145) Chloride Level 108 mmol/L (98-107) Carbon Dioxide Level 27 mmol/L (21-32) Anion Gap 8 (6-14) Blood Urea Nitrogen 8 mg/dL (7-20) Creatinine 0.5 mg/dL (0.6-1.0) Estimated GFR (Cockcroft-Gault) 148.0 Glucose Level 92 mg/dL (70-99) Calcium Level 8.7 mg/dL (8.5-10.1) Triglycerides Level 41 mg/dL (0-150) Cholesterol Level 140 mg/dL (0-200) LDL Cholesterol, Calculated 80 mg/dL (0-100) VLDL Cholesterol, Calculated 8 mg/dL (0-40) Non-HDL Cholesterol Calculated 88 mg/dL (0-129) HDL Cholesterol 52 mg/dL (40-60) Cholesterol/HDL Ratio 2.7 Medications Current Medications Lorazepam (Ativan) 2 mg 1X ONCE IV Last administered on 04/10/18at 20:59; Start 04/10/18 at 20:30; Stop 04/10/18 at 20:31; Status DC Sodium Chloride 500 ml @ 500 mls/hr 1X ONCE IV Last administered on at 21:02; Start 04/10/18 at 20:30; Stop 04/10/18 at 21:29; Status DC Levetiracetam (Keppra) 1,500 mg BID PO Last administered on 04/12/18at 09:55; Start 04/11/18 at 01:15 Acetaminophen (Tylenol) 650 mg PRN Q6HRS PRN PO Fever Last administered on at 16:45; Start 04/11/18 at 01:15 Potassium Chloride (Klor-Con) 40 meq 1X ONCE PO Last administered on at 04:48; Start 04/11/18 at 04:30; Stop 04/11/18 at 04:32; Status DC Potassium Chloride (Klor-Con) 40 meq 1X ONCE PO Last administered on at 16:45; Start 04/11/18 at 16:45; Stop 04/11/18 at 16:46; Status DC Citalopram Hydrobromide (CeleXA) 20 mg DAILY PO Last administered on 04/12/18at 12:43; Start 04/12/18 at 12:45 Active Scripts Active Covert 5-325 Tablet (Acetaminophen/Hydrocodone Bitart) 1 Each Tablet 1-2 Each PO PRN Q6HRS PRN as needed for pain Prednisone 20 Mg Tablet 20 Mg PO UD Take 3 tablets with breakfast for 3 days. Then take 2 tablets daily with breakfast for 3 days. Then take one tablet with breakfast for 3 days. Then take one half tablet until gone Keppra (Levetiracetam) 750 Mg Tablet 1,500 Mg PO BID 30 Days Reported Tylenol (Acetaminophen) 325 Mg Tablet 325 Mg PO PRN PRN Tylenol (Acetaminophen) 325 Mg Tablet 1-2 Tab PO QID Vitals/I & O Vital Sign - Last 24 Hours 04/11/18 04/11/18 04/11/18 04/11/18 15:30 16:14 19:10 20:00 Temp 98.0 97.5 97.7 98.0 97.5 97.7 Pulse 68 72 71 Resp 20 18 B/P (MAP) 114/68 (83) 102/58 (73) 109/54 (72) Pulse Ox 97 98 97 O2 Delivery Room Air Room Air Room Air Room Air 04/11/18 04/12/18 04/12/18 04/12/18 23:10 03:10 07:05 08:00 Temp 97.9 97.9 97.6 97.9 97.9 97.6 Pulse 66 67 61 Resp 18 18 17 B/P (MAP) 107/52 (70) 94/51 (65) 103/53 (70) Pulse Ox 97 96 95 O2 Delivery Room Air Room Air Room Air Room Air 1/30/19 10:40 Temp 97.5 97.5 Pulse 68 Resp 18 B/P (MAP) 106/62 (77) Pulse Ox 97 O2 Delivery Room Air Intake and Output 04/11/18 04/11/18 04/12/18 15:01 23:01 07:01 Intake Total 320 ml 400 ml 400 ml Output Total 700 ml Balance 320 ml 400 ml -300 ml DARA SIMEON III DO Apr 12, 2018 12:50
--- NOTE | 2018-04-12 15:00 | RAD ---
Left Lower extremity venous Doppler. 04/12/2018 HISTORY: Left lower extremity pain and edema COMPARISON: None FINDINGS: Grayscale, Color and Doppler analysis of the Left Lower extremity deep venous system was performed with serial graded compression and augmentation. The left common femoral, femoral, and popliteal veins are widely patent with normal color Doppler imaging. Limited images of the left calf veins are unremarkable. IMPRESSION: No evidence of DVT in the left lower extremity. Electronically signed by: Jeremy Henderson MD (04/12/2018 2:55 PM) [facility]
[2018-04-12] MEDS: ACETAMINOPHEN 325 MG TABLET. PO PRN (15:20)
[2018-04-12 15:24] VITALS: BP 105/65
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
--- NOTE | 2018-04-12 16:33 | EEG ---
DATE OF SERVICE: 04/11/2018 ELECTROENCEPHALOGRAM NUMBER: [id number]. OBJECTIVE: This is a 27-year-old female patient with history of seizure or seizure like episodes and cannabinoids positive test. EEG was requested to evaluate seizure activity. METHODS: Twenty electrodes were applied according to the international 10-20 electrode placement system. EKG monitoring, hyperventilation, intermittent photic stimulation, monopolar and bipolar montages are routinely utilized. The record was obtained on a digital system with video monitoring. MEDICATION: Keppra. FINDINGS: 1. Background: The patient was recorded in the awake, drowsy, and sleep states. The overall background amplitude is 10-40 microvolts. A posterior dominant rhythm of 9-10 Hz is observed. 2. Abnormalities: No specific epileptiform discharge or electrographic seizure is seen. No focal or diffuse slowing. 3. Activation: Hyperventilation was performed with good efforts and normal response. Intermittent photic stimulation was performed with photic driving. No specific epileptiform discharge or electrographic seizure induced by hyperventilation or intermittent photic stimulation. IMPRESSION: This electroencephalogram is a normal study for the awake, drowsy, and sleep states. No focal, lateralizing, specific epileptiform discharge, or electrographic seizure is seen. EDWAR GILL MD DR: JACLYN/hakna JOB#: [id number] / [id number] JORDAN
--- NOTE | 2018-04-12 18:51 | NUR ---
Discharge Note: DAVID AYALA [address] Discharge instructions and discharge home medications reviewed with patient and a copy given. All questions have been answered and understanding verbalized. The following instructions and handouts were given: Seizure easy to read, EEG handout. gave instruction for clinic ff up. Discontinued lines and drains: peripheral IV catheter intact.Patient tolerated removal, no complications noted. Patient discharged to home with self care via wheel chair using [facility] at 1740.
[2018-04-13] MEDS ORDERED: CITALOPRAM 20 MG TABLET. PO SCH (09:00)
== END 2018-04-12 17:40 | disposition home or self-care (01) ==
LOC: ER 19:20 → 6 SOUTH 22:57
PROVIDERS: ADMIT Internal Medicine; ATTEND Internal Medicine
DX: G40.909 Epilepsy, unspecified, not intractable, without status epilepticus (principal); F41.9 Anxiety disorder, unspecified; E87.6 Hypokalemia; F12.90 Cannabis use, unspecified, uncomplicated; F44.5 Conversion disorder with seizures or convulsions; E66.01 Morbid (severe) obesity due to excess calories; Z82.49 Family history of ischemic heart disease and other diseases of the circulatory system; Z79.899 Other long term (current) drug therapy
CPT/HCPCS: 36415; 70450; 80048; 80053; 80061; 80307; 81001; 83735; 84132; 84443; 84484; 85025; 93005; 93306; 93971; 95816; 96374; 99284; G0378; J2060; J7040; 80177; G0379

== ENCOUNTER 2018-05-08 19:36 | Emergency (ER) | payer SELFPAY ==
[~2018-05-08] VITALS: Ht 160 cm; Wt 124.7 kg
[~2018-05-08 19:36] MED LIST changes: +ACET325T9 PO
[2018-05-08 20:40] VITALS: BP 125/76
[2018-05-08 21:29] LABS: BILIRUBIN,URINE NEGATIVE (NEG); CLARITY,URINE CLEAR; COLOR,URINE YELLOW; NITRITE,URINE NEGATIVE (NEG); PH,URINE 5.5; PROTEIN,URINE NEGATIVE (NEG-TRACE); UROBILINOGEN,URINE 0.2 mg/dL (0.2 mg/dL)
[2018-05-08 21:35] LABS: BACTERIA,URINE MODERATE /HPF (0-FEW); SQUAMOUS EPITHELIAL CELL,UR MANY /LPF
[2018-05-08 21:36] LABS: RBC,URINE 0 /HPF (0-2)
[2018-05-08] MEDS ORDERED: NITR100C62 PO (21:51)
--- NOTE | 2018-05-08 21:54 | PHYS DOC ---
Past Medical History Past Medical History: Anxiety, Depression, Seizure, Other Additional Past Medical Histor: CHRONIC BACK PAIN,TBI, PTSD (BISI SALMON APRN) Past Surgical History: No Surgical History (BISI SALMON APRN) Alcohol Use: None Drug Use: Marijuana (VIKYBISI APRN) Adult General Chief Complaint Chief Complaint: TEST [facility] HPI Patient is a 27 year old female who presents with a need for a test. The patient states that her first day of her last period was April 03. She has had unprotected sex. The patient does have a seizure disorder for which she takes Keppra. She also takes psychiatric medications. She does not have a health care provider because she recently moved to [place]. She denies vaginal bleeding or discharge. She has experienced some symptoms of dysuria such as frequency and urgency. (BISI SALMON APRN) Review of Systems Review of Systems Constitutional: Denies fever or chills [] Eyes: Denies change in visual acuity, redness, or eye pain [] HENT: Denies nasal congestion or sore throat [] Respiratory: Denies cough or shortness of breath [] Cardiovascular: No additional information not addressed in HPI [] GI: Denies abdominal pain, nausea, vomiting, bloody stools or diarrhea [] : See history of present illness Musculoskeletal: Denies back pain or joint pain [] Integument: Denies rash or skin lesions [] Neurologic: Denies headache, focal weakness or sensory changes [] Endocrine: Denies polyuria or polydipsia [] All other systems were reviewed and found to be within normal limits, except as documented in this note. (BISI SALMON APRN) Allergies Allergies Allergies Coded Allergies Type Severity Reaction Last Updated Verified No Known Drug Allergies 03/17/18 No (MIKKI RIVAS MD) Physical Exam Physical Exam Constitutional: Well developed, well nourished, no acute distress, non-toxic appearance. [] Cardiovascular:Heart rate regular rhythm, no murmur [] Lungs & Thorax: Bilateral breath sounds clear to auscultation [] Abdomen: Bowel sounds normal, soft, no tenderness, no masses, no pulsatile masses. [] Skin: Warm, dry, no erythema, no rash. [] Back: No tenderness, no CVA tenderness. [] Extremities: No tenderness, no cyanosis, no clubbing, ROM intact, no edema. [] Neurologic: Alert and oriented X 3, normal motor function, normal sensory function, no focal deficits noted. [] Psychologic: Affect normal, judgement normal, mood normal. [] (BISI SALMON APRN) Current Patient Data Vital Signs Vital Signs Date Time Temp Pulse Resp B/P (MAP) Pulse Ox O2 Delivery O2 Flow Rate FiO2 05/08/18 20:40 97.7 76 15 125/76 (92) 100 Room Air 97.7 (MIKKI RIVAS MD) Lab Values Laboratory Tests Test 05/08/18 19:44 05/08/18 19:47 Urine Collection Type Unknown Urine Color Yellow Urine Clarity Clear Urine pH 5.5 Urine Specific [place] 1.020 Urine Protein Negative mg/dL (NEG-TRACE) Urine Glucose (UA) Negative mg/dL (NEG) Urine Ketones (Stick) Negative mg/dL (NEG) Urine Blood Negative (NEG) Urine Nitrite Negative (NEG) Urine Bilirubin Negative (NEG) Urine Urobilinogen Dipstick 0.2 mg/dL (0.2 mg/dL) Urine Leukocyte Esterase Large (NEG) Urine RBC 0 /HPF (0-2) Urine WBC 5-10 /HPF (0-4) Urine Squamous Epithelial Cells Many /LPF Urine Bacteria Moderate /HPF (0-FEW) Urine Mucus Marked /LPF POC Urine HCG, Qualitative Hcg positive (Negative) Microbiology 05/08/18 Urine Culture - Final, Complete 05/08/18 Urine Culture Result 1 (KIRSTEN) - Final, Complete (MIKKI RIVAS MD) EKG EKG [] (BISI SALMON APRN) Radiology/Procedures Radiology/Procedures [] (BISI SALMON APRN) Course & Med Decision Making Course & Med Decision Making Pertinent Labs and Imaging studies reviewed. (See chart for details) []The patient has a positive test. She is also positive urinary tract infection. The patient requested a RhoGam shot in the emergency department. I explained that she would not need to have RhoGAM until her third trimester she miscarried at greater than 13 weeks. She is to follow-up with obstetrics for further management of her . She is in agreement with this plan. (BISI SALMON APRN) Course & Med Decision Making Staff Physician Addendum: I was working in the ER during the course of this patient's visit. I was available for consultation as needed, but I was not directly involved in the care of this patient. (MIKKI RIVAS MD) Dragon Disclaimer Dragon Disclaimer This electronic medical record was generated, in whole or in part, using a voice recognition dictation system. (BISI SALMON APRN) Departure Departure Impression: Primary Impression: Additional Impression: UTI (urinary tract infection) during Disposition: HOME, SELF-CARE Condition: STABLE Referrals: NO PCP (PCP) SHAMAR HERNANDEZ MD Patient Instructions: ABCs of , - Urinary Tract Infection Additional Instructions: Follow-up with obstetrics for management of your . Increase fluids and rest. Scripts Nitrofurantoin Monohyd/M-Cryst (MACROBID 100 MG CAPSULE) 100 Mg Capsule 1 CAP PO BID for UTI, #14 CAP Prov: BISI SALMON APRN 05/08/18 Problem Qualifiers BISI SALMON APRN May 08, 2018 21:54 MIKKI RIVAS MD May 19, 2018 05:08
== END 2018-05-08 22:00 | disposition home or self-care (01) ==
LOC: ER 19:36
DX: O23.41 Unspecified infection of urinary tract in pregnancy, first trimester (principal); O99.341 Other mental disorders complicating pregnancy, first trimester; F41.8 Other specified anxiety disorders; G89.29 Other chronic pain; Z3A.01 Less than 8 weeks gestation of pregnancy
CPT/HCPCS: 81001; 81025; 87086; 99283

== ENCOUNTER 2018-05-18 22:21 | Emergency (ER) | payer OTHER ==
[~2018-05-18] VITALS: Ht 160 cm; Wt 136.1 kg
[~2018-05-18 22:21] MED LIST changes: +NITR100C62 PO
[2018-05-18 23:26] LABS: BILIRUBIN,URINE NEGATIVE (NEG); CLARITY,URINE TURBID; COLOR,URINE YELLOW; NITRITE,URINE NEGATIVE (NEG); PH,URINE 5.5; PROTEIN,URINE 30 mg/dL (NEG-TRACE); UROBILINOGEN,URINE 0.2 mg/dL (0.2 mg/dL)
[2018-05-18 23:35] LABS: BACTERIA,URINE MANY /HPF (0-FEW); SQUAMOUS EPITHELIAL CELL,UR MANY /LPF
[2018-05-18 23:36] LABS: AMORPHOUS SEDIMENT,UR PRESENT /HPF
[2018-05-19 00:16] LABS: BASO # 0.1 x10^3/uL (0.0-0.2); BASO % 1 % (0-3); EOS # 0.1 x10^3/uL (0.0-0.7); EOS % 1 % (0-3); HEMATOCRIT 35.9 % (36.0-47.0); HEMOGLOBIN 11.9 g/dL (12.0-15.5); LYMPH # 1.6 x10^3/uL (1.0-4.8); LYMPH % 27 % (24-48); MEAN CORPUSCULAR HEMOGLOBIN 30 pg (25-35); MEAN CORPUSCULAR HGB CONC 33 g/dL (31-37); MEAN CORPUSCULAR VOLUME 89 fL (79-100); MONO # 0.4 x10^3/uL (0.0-1.1); MONO % 7 % (0-9); NEUT # 3.8 x10^3uL (1.8-7.7); NEUT % 64 % (31-73); PLATELET COUNT 252 x10^3/uL (140-400); RED BLOOD COUNT 4.01 x10^6/uL (3.50-5.40); RED CELL DISTRIBUTION WIDTH 14.8 % (11.5-14.5); WHITE BLOOD COUNT 5.9 x10^3/uL (4.0-11.0)
--- NOTE | 2018-05-19 00:25 | RAD ---
OB ultrasound dated 05/18/2018. No comparison available. CLINICAL INDICATION: Spotting. FINDINGS: Small hypoechoic focus within the endometrial canal may represent gestational sac. This measures 4.2 mm, correlating with a 5 week 1 day gestation. There is no definite pole or cardiac activity. No yolk sac is visualized. No subchorionic collection. Uterus is unremarkable. Cervical length measures 5 cm. Right ovary measures 3.1 x 1.8 x 1.9 cm. Left ovary measures 3.9 x 2.5 x 2.6 cm. No adnexal mass. Small amount of free fluid. IMPRESSION: 1. Possible gestational sac within the endometrial canal correlating with a 5 week 1 day gestation. There is no pole or cardiac activity at this time. Consider early viable IUP or demise. Correlation with beta-hCG values. 2. Small amount of free pelvic fluid, nonspecific. Electronically signed by: Casey Tenorio MD (05/19/2018 12:22 AM) [facility]
[2018-05-19 00:28] LABS: CALCIUM 8.6 mg/dL (8.5-10.1); CREATININE 0.6 mg/dL (0.6-1.0); GFR 119.9; POTASSIUM 3.3 mmol/L (3.5-5.1)
[2018-05-19 00:34] LABS: ALBUMIN 2.8 g/dL (3.4-5.0); ALBUMIN/GLOBULIN RATIO 0.8 (1.0-1.7); TOTAL BILIRUBIN 0.2 mg/dL (0.2-1.0); TOTAL PROTEIN 6.5 g/dL (6.4-8.2)
--- NOTE | 2018-05-19 00:44 | PHYS DOC ---
Past Medical History Past Medical History: Anxiety, Depression, Seizure, UTI, Other Additional Past Medical Histor: CHRONIC BACK PAIN,TBI, PTSD Past Surgical History: No Surgical History Alcohol Use: None Drug Use: Marijuana Adult General Chief Complaint Chief Complaint: VAGINAL BLEEDING HPI HPI Patient is a 27 year old female who presents with vaginal bleeding. Pt noticed blood incidentally on tissue paper after using the restroom. She notes mild b/l lower back and right lower quadrant abdominal pressure/pain, rating it a 3/10 without radiation. She described the blood as reddish/pink and noted it was similar to spotting. She describes similar spotting that occured around 4-6 weeks gestation in her first 2 pregnancies. Her LMP was 04/03/18 per patient, and she had a positive home test as well as 2 positive qualitative bHCG's (one was on 05/08 here, the other was a week ago at a women's clinic). She denies any trauma. She reports having a UTI 2 weeks ago for which she started abx's 5 days ago - she cannot recall what antibiotic she is taking. Pt has not had a transvaginal ultrasound to confirm IUP. She also reports needing a RhoGam shot, as she is Type O (-), per patient. Review of Systems Review of Systems Constitutional: Denies fever or chills [] Eyes: Denies change in visual acuity, redness, or eye pain [] HENT: Denies nasal congestion or sore throat [] Respiratory: Denies cough or shortness of breath [] Cardiovascular: No additional information not addressed in HPI [] GI: admits to RLQ abdominal pain. Denies nausea, vomiting, bloody stools or diarrhea [] : Denies dysuria or hematuria [] Musculoskeletal: Admits to lower back pain [] Neurologic: Denies headache, focal weakness or sensory changes [] Endocrine: Denies polyuria or polydipsia [] All other systems were reviewed and found to be within normal limits, except as documented in this note. Allergies Allergies Allergies Coded Allergies Type Severity Reaction Last Updated Verified No Known Drug Allergies 03/17/18 No Physical Exam Physical Exam Constitutional: Obese, well nourished, no acute distress, non-toxic appearance. [] Eyes: PERRLA, EOMI, conjunctiva normal, no discharge. [] Cardiovascular:Heart rate regular rhythm, no murmur [] Lungs & Thorax: Bilateral breath sounds clear to auscultation [] Abdomen: Bowel sounds normal, soft, , no masses, no pulsatile masses. mild suprapubic ttp only Skin: Warm, dry, no erythema, no rash. [] PELVIC; deferred Back: TTP in lumbar spine, no CVA tenderness. [] Neurologic: Alert and oriented X 3, normal motor function, normal sensory function, no focal deficits noted. [] Psychologic: Affect normal, judgement normal, mood normal. [] Current Patient Data Vital Signs Vital Signs Date Time Temp Pulse Resp B/P (MAP) Pulse Ox O2 Delivery O2 Flow Rate FiO2 05/19/18 02:00 78 18 113/71 (85) 98 Room Air 05/19/18 01:30 98.4 98.4 Lab Values Laboratory Tests Test 05/18/18 22:40 05/18/18 22:48 05/19/18 00:01 Urine Collection Type Unknown Urine Color Yellow Urine Clarity Turbid Urine pH 5.5 Urine Specific [place] >=1.030 Urine Protein 30 mg/dL (NEG-TRACE) Urine Glucose (UA) Negative mg/dL (NEG) Urine Ketones (Stick) Negative mg/dL (NEG) Urine Blood Large (NEG) Urine Nitrite Negative (NEG) Urine Bilirubin Negative (NEG) Urine Urobilinogen Dipstick 0.2 mg/dL (0.2 mg/dL) Urine Leukocyte Esterase Moderate (NEG) Urine RBC 3-5 /HPF (0-2) Urine WBC 11-20 /HPF (0-4) Urine Squamous Epithelial Cells Many /LPF Urine Calcium Phosphate Crystals /HPF Urine Amorphous Sediment Present /HPF Urine Bacteria Many /HPF (0-FEW) Urine Mucus Mod /LPF POC Urine HCG, Qualitative Hcg positive (Negative) White Blood Count 5.9 x10^3/uL (4.0-11.0) Red Blood Count 4.01 x10^6/uL (3.50-5.40) Hemoglobin 11.9 g/dL (12.0-15.5) L Hematocrit 35.9 % (36.0-47.0) L Mean Corpuscular Volume 89 fL (79-100) Mean Corpuscular Hemoglobin 30 pg (25-35) Mean Corpuscular Hemoglobin Concent 33 g/dL (31-37) Red Cell Distribution Width 14.8 % (11.5-14.5) H Platelet Count 252 x10^3/uL (140-400) Neutrophils (%) (Auto) 64 % (31-73) Lymphocytes (%) (Auto) 27 % (24-48) Monocytes (%) (Auto) 7 % (0-9) Eosinophils (%) (Auto) 1 % (0-3) Basophils (%) (Auto) 1 % (0-3) Neutrophils # (Auto) 3.8 x10^3uL (1.8-7.7) Lymphocytes # (Auto) 1.6 x10^3/uL (1.0-4.8) Monocytes # (Auto) 0.4 x10^3/uL (0.0-1.1) Eosinophils # (Auto) 0.1 x10^3/uL (0.0-0.7) Basophils # (Auto) 0.1 x10^3/uL (0.0-0.2) Maternal Serum HCG Beta Subunit 835 mIU/mL (0-5) H Sodium Level 143 mmol/L (136-145) Potassium Level 3.3 mmol/L (3.5-5.1) L Chloride Level 107 mmol/L (98-107) Carbon Dioxide Level 26 mmol/L (21-32) Anion Gap 10 (6-14) Blood Urea Nitrogen 6 mg/dL (7-20) L Creatinine 0.6 mg/dL (0.6-1.0) Estimated GFR (Cockcroft-Gault) 119.9 BUN/Creatinine Ratio 10 (6-20) Glucose Level 141 mg/dL (70-99) H Calcium Level 8.6 mg/dL (8.5-10.1) Total Bilirubin 0.2 mg/dL (0.2-1.0) Aspartate Amino Transferase (AST) 17 U/L (15-37) Alanine Aminotransferase (ALT) 20 U/L (14-59) Alkaline Phosphatase 67 U/L (46-116) Total Protein 6.5 g/dL (6.4-8.2) Albumin 2.8 g/dL (3.4-5.0) L Albumin/Globulin Ratio 0.8 (1.0-1.7) L Laboratory Tests 05/19/18 00:01 Laboratory Tests 05/19/18 00:01 EKG EKG [] Radiology/Procedures Radiology/Procedures Pelvic US (05/18/18) IMPRESSION: 1. Possible gestational sac within the endometrial canal correlating with a 5 week 1 day gestation. There is no pole or cardiac activity at this time. Consider early viable IUP or demise. Correlation with beta-hCG values. 2. Small amount of free pelvic fluid, nonspecific. [] Course & Med Decision Making Course & Med Decision Making Ms. Beny Manrique is a 27 yo Female presenting with spotting discovered incidentally while patient was using the restroom. Her LMP was 04/03/18 and she had 3 positive qualitative tests since that time. She had mild pain, rated 3-10 in lower back and RLQ. She also reports that this happened around 4- 6 weeks gestation in her first 2 pregnancies. Quant bHCG revealed a level of 835. Pelvic US showed a possible gestational sac within the endometrial canal correlating with a 5 week 1 day gestation. There is no pole or cardiac activity at this time. Consider early viable IUP or demise. Correlation with beta-hCG values. 2. Small amount of free pelvic fluid, nonspecific. Given the patient's early gestation, it is possible that dates from LMP are not exact - as her bHCG is 835. If US is correct that it is 5w1d, quant would be slightly low. We are unable to definitively tell if it is a viable IUP or a missed ab. Discussed with pt the need to see her OB w/in a week to get another quant bHCG and US. Pt also noted a need for rhogam in all of her previous pregnancies and she states she knows for a fact she is O (-) and would like to receive a rhogam shot. Pt is stable, not actively bleeding, and understands there is no definitive diagnosis yet as she needs serial quant bHCG and another US. She has a history of seizure disorder for which she takes Keppra. Pt will be discharged and f/u with her OB w/in 1 week. Dragon Disclaimer Dragon Disclaimer This electronic medical record was generated, in whole or in part, using a voice recognition dictation system. Departure Departure Impression: Primary Impression: First-trimester bleeding Disposition: HOME, SELF-CARE Condition: STABLE Referrals: NO PCP (PCP) MIKKI RIVAS MD May 19, 2018 00:44
[2018-05-19 01:30] VITALS: BP 111/57
[2018-05-19 02:00] VITALS: BP 113/71
== END 2018-05-19 02:03 | disposition home or self-care (01) ==
LOC: ER 22:21
DX: O46.91 Antepartum hemorrhage, unspecified, first trimester (principal); M54.5 Low back pain; R10.31 Right lower quadrant pain; G89.29 Other chronic pain; Z87.440 Personal history of urinary (tract) infections; Z3A.01 Less than 8 weeks gestation of pregnancy
CPT/HCPCS: 36415; 36430; 76801; 76817; 80053; 81001; 81025; 84702; 85025; 86850; 86900; 86901; 87086; 99285; J2791

== ENCOUNTER 2018-05-20 15:29 | Emergency (ER) | payer OTHER ==
[~2018-05-20] VITALS: Ht 160 cm; Wt 133.4 kg
[2018-05-20 16:52] LABS: BILIRUBIN,URINE NEGATIVE (NEG); CLARITY,URINE CLEAR; COLOR,URINE YELLOW; NITRITE,URINE NEGATIVE (NEG); PROTEIN,URINE NEGATIVE (NEG-TRACE); UROBILINOGEN,URINE 0.2 mg/dL (0.2 mg/dL)
--- NOTE | 2018-05-20 16:52 | PHYS DOC ---
Past Medical History Past Medical History: Anxiety, Depression, Seizure, UTI, Other Additional Past Medical Histor: CHRONIC BACK PAIN,TBI, PTSD Past Surgical History: No Surgical History Alcohol Use: None Drug Use: Marijuana Adult General Chief Complaint Chief Complaint: VAGINAL BLEEDING HPI HPI Patient is a 27 year old female who presents with was here on with some vaginal spotting and states that the spotting then stopped on Tuesday and she is back today because she started spotting again. Patient was also spotting on May 08 when she came in and was diagnosed with a urinary tract infection. Patient is almost finished with that antibiotic. Patient's denying any pain at this time or abnormal vaginal discharge. Review of Systems Review of Systems Constitutional: Denies fever or chills [] Eyes: Denies change in visual acuity, redness, or eye pain [] HENT: Denies nasal congestion or sore throat [] Respiratory: Denies cough or shortness of breath [] Cardiovascular: No additional information not addressed in [facility] [] GI: Denies abdominal pain, nausea, vomiting, bloody stools or diarrhea [] :Vaginal bleeding. Denies dysuria or hematuria [] Musculoskeletal: Denies back pain or joint pain [] Integument: Denies rash or skin lesions [] Neurologic: Denies headache, focal weakness or sensory changes [] All other systems were reviewed and found to be within normal limits, except as documented in this note. Allergies Allergies Allergies Coded Allergies Type Severity Reaction Last Updated Verified No Known Drug Allergies 03/17/18 No Physical Exam Physical Exam Constitutional: Well developed, well nourished, no acute distress, non-toxic appearance. [] HENT: Normocephalic, atraumatic, bilateral external ears normal, oropharynx moist, no oral exudates, nose normal. [] Eyes: PERRLA, EOMI, conjunctiva normal, no discharge. [] Neck: Normal range of motion, no tenderness, supple, no stridor. [] Cardiovascular:Heart rate regular rhythm, no murmur [] Lungs & Thorax: Bilateral breath sounds clear to auscultation [] Abdomen: Bowel sounds normal, soft, no tenderness, no masses, no pulsatile masses. [] Skin: Warm, dry, no erythema, no rash. [] Back: No tenderness, no CVA tenderness. [] Extremities: No tenderness, no cyanosis, no clubbing, ROM intact, no edema. [] Neurologic: Alert and oriented X 3, normal motor function, normal sensory function, no focal deficits noted. [] Psychologic: Affect normal, judgement normal, mood normal. Normal Physical Exam[] Current Patient Data Vital Signs Vital Signs Date Time Temp Pulse Resp B/P (MAP) Pulse Ox O2 Delivery O2 Flow Rate FiO2 05/20/18 16:18 98.1 67 16 112/58 (76) 97 Room Air 98.1 Lab Values Laboratory Tests Test 05/20/18 16:15 05/20/18 16:47 Urine Collection Type Unknown Urine Color Yellow Urine Clarity Clear Urine pH 6.0 Urine Specific [place] 1.015 Urine Protein Negative mg/dL (NEG-TRACE) Urine Glucose (UA) Negative mg/dL (NEG) Urine Ketones (Stick) Trace mg/dL (NEG) Urine Blood Negative (NEG) Urine Nitrite Negative (NEG) Urine Bilirubin Negative (NEG) Urine Urobilinogen Dipstick 0.2 mg/dL (0.2 mg/dL) Urine Leukocyte Esterase Moderate (NEG) Urine RBC 0 /HPF (0-2) Urine WBC 5-10 /HPF (0-4) Urine Squamous Epithelial Cells Many /LPF Urine Bacteria Moderate /HPF (0-FEW) Urine Mucus Marked /LPF White Blood Count 5.8 x10^3/uL (4.0-11.0) Red Blood Count 4.30 x10^6/uL (3.50-5.40) Hemoglobin 12.8 g/dL (12.0-15.5) Hematocrit 38.0 % (36.0-47.0) Mean Corpuscular Volume 88 fL (79-100) Mean Corpuscular Hemoglobin 30 pg (25-35) Mean Corpuscular Hemoglobin Concent 34 g/dL (31-37) Red Cell Distribution Width 15.1 % (11.5-14.5) H Platelet Count 251 x10^3/uL (140-400) Neutrophils (%) (Auto) 74 % (31-73) H Lymphocytes (%) (Auto) 20 % (24-48) L Monocytes (%) (Auto) 5 % (0-9) Eosinophils (%) (Auto) 1 % (0-3) Basophils (%) (Auto) 1 % (0-3) Neutrophils # (Auto) 4.3 x10^3uL (1.8-7.7) Lymphocytes # (Auto) 1.2 x10^3/uL (1.0-4.8) Monocytes # (Auto) 0.3 x10^3/uL (0.0-1.1) Eosinophils # (Auto) 0.0 x10^3/uL (0.0-0.7) Basophils # (Auto) 0.0 x10^3/uL (0.0-0.2) Sodium Level 142 mmol/L (136-145) Potassium Level 3.5 mmol/L (3.5-5.1) Chloride Level 104 mmol/L (98-107) Carbon Dioxide Level 26 mmol/L (21-32) Anion Gap 12 (6-14) Blood Urea Nitrogen 4 mg/dL (7-20) L Creatinine 0.5 mg/dL (0.6-1.0) L Estimated GFR (Cockcroft-Gault) 148.0 BUN/Creatinine Ratio 8 (6-20) Glucose Level 100 mg/dL (70-99) H Calcium Level 8.7 mg/dL (8.5-10.1) Total Bilirubin 0.4 mg/dL (0.2-1.0) Aspartate Amino Transferase (AST) 23 U/L (15-37) Alanine Aminotransferase (ALT) 27 U/L (14-59) Alkaline Phosphatase 52 U/L (46-116) Total Protein 6.8 g/dL (6.4-8.2) Albumin 3.0 g/dL (3.4-5.0) L Albumin/Globulin Ratio 0.8 (1.0-1.7) L Laboratory Tests 05/20/18 16:47 Laboratory Tests 05/20/18 16:47 EKG EKG [] Radiology/Procedures Radiology/Procedures [] Impressions: [facility] [address] [place], [place] [id number] IMAGING REPORT Signed PATIENT: DAVID AYALA ACCOUNT: [id number] : 1990 LOCATION: ER AGE: 27 SEX: F EXAM STATUS: REG ER ORD. PHYSICIAN: ENMANUEL CASTRO APRN REASON: vaginal bleeding in PROCEDURE: OB <14 WKS W/TV EXAM: OBSTETRIC ULTRASOUND <14 WEEKS. HISTORY: Vaginal bleeding in . FINDINGS: Sonographic evaluation of the pelvis was performed transabdominally and transvaginally. The uterus is anteverted and measures 9.9 x 5.3 x 6.1 cm. A single intrauterine gestation measures 5 weeks 2 days. No pole is yet detectable. No yolk sac is visualized. There is no subchorionic collection. The gestational sac is regular. The right ovary measures 3.8 x 1.5 x 1.4 cm. The left ovary measures 3.8 x 2.6 x 2.6 cm. A hyperechoic focus in the left ovary suggests a corpus luteum or hemorrhagic cyst. There is normal flow bilaterally. There is no adnexal mass. There is moderate free fluid without clear clot. IMPRESSION: 1. Single intrauterine gestation measuring 5 weeks 2 days. No pole is yet detectable. Ongoing follow-up is recommended. 2. 2 cm corpus luteum versus hemorrhagic cyst in the left ovary. Electronically signed by: Eloisa Ferguson MD (05/20/2018 5:35 PM) [facility] DICTATED and SIGNED BY: GILLIAN FERGUSON MD DATE: 05/20/18 1733 Course & Med Decision Making Course & Med Decision Making Patient is a 27 year old female who presents with was here on with some vaginal spotting and states that the spotting then stopped on Tuesday and she is back today because she started spotting again. Patient was also spotting on May 08 when she came in and was diagnosed with a urinary tract infection. Patient is almost finished with that antibiotic. Patient's denying any pain at this time or abnormal vaginal discharge. Alert and oriented. Skin pink warm and dry. Mucous membranes moist. Abdomen is soft and nontender. Patient states she does not need to wear a pad or panty liner because the spotting is so light. Patient denies lightheadedness, dizziness, chest pain, shortness of air, abdominal pain, nausea, vomiting, diarrhea, fever, dysuria. Patient states she has a OB appointment on May 30. She states she has received rhogam for this . Patient states in previous pregnancies that she's also had vaginal spotting. Signs are within normal limits. Afebrile. Blood work unremarkable. OB shows 1. Single intrauterine gestation measuring 5 weeks 2 days. No pole is yet detectable. Ongoing follow-up is recommended. 2. 2 cm corpus luteum versus hemorrhagic cyst in the left ovary. Beta serum have continued to rise. Patient is discharged with vaginal bleeding in and she needs to keep her appointment on May 30. Patient should return if she has increased pain that is not relieved and or bleeding with clots. Dragon Disclaimer Dragon Disclaimer This electronic medical record was generated, in whole or in part, using a voice recognition dictation system. Departure Departure Impression: Primary Impression: First-trimester bleeding Disposition: HOME, SELF-CARE Condition: STABLE Referrals: NO PCP (PCP) Patient Instructions: Vaginal Bleeding During , First Trimester Additional Instructions: Follow-up with OB physician as scheduled. Return for worsening abdominal pain and heavy vaginal bleeding with clots. ENMANUEL CASTRO SPEECH CORRECTION CONSULTANT May 20, 2018 16:52
[2018-05-20 16:59] LABS: RBC,URINE 0 /HPF (0-2)
[2018-05-20 17:00] LABS: BACTERIA,URINE MODERATE /HPF (0-FEW); SQUAMOUS EPITHELIAL CELL,UR MANY /LPF
[2018-05-20 17:04] LABS: BASO % 1 % (0-3); EOS % 1 % (0-3); HEMOGLOBIN 12.8 g/dL (12.0-15.5); LYMPH # 1.2 x10^3/uL (1.0-4.8); LYMPH % 20 % (24-48); MEAN CORPUSCULAR HEMOGLOBIN 30 pg (25-35); MEAN CORPUSCULAR HGB CONC 34 g/dL (31-37); MEAN CORPUSCULAR VOLUME 88 fL (79-100); MONO # 0.3 x10^3/uL (0.0-1.1); MONO % 5 % (0-9); NEUT # 4.3 x10^3uL (1.8-7.7); NEUT % 74 % (31-73); PLATELET COUNT 251 x10^3/uL (140-400); RED CELL DISTRIBUTION WIDTH 15.1 % (11.5-14.5); WHITE BLOOD COUNT 5.8 x10^3/uL (4.0-11.0)
[2018-05-20 17:12] LABS: CALCIUM 8.7 mg/dL (8.5-10.1); CREATININE 0.5 mg/dL (0.6-1.0); POTASSIUM 3.5 mmol/L (3.5-5.1)
[2018-05-20 17:20] LABS: ALBUMIN/GLOBULIN RATIO 0.8 (1.0-1.7); TOTAL BILIRUBIN 0.4 mg/dL (0.2-1.0); TOTAL PROTEIN 6.8 g/dL (6.4-8.2)
--- NOTE | 2018-05-20 17:38 | RAD ---
EXAM: OBSTETRIC ULTRASOUND <14 WEEKS. HISTORY: Vaginal bleeding in . FINDINGS: Sonographic evaluation of the pelvis was performed transabdominally and transvaginally. The uterus is anteverted and measures 9.9 x 5.3 x 6.1 cm. A single intrauterine gestation measures 5 weeks 2 days. No pole is yet detectable. No yolk sac is visualized. There is no subchorionic collection. The gestational sac is regular. The right ovary measures 3.8 x 1.5 x 1.4 cm. The left ovary measures 3.8 x 2.6 x 2.6 cm. A hyperechoic focus in the left ovary suggests a corpus luteum or hemorrhagic cyst. There is normal flow bilaterally. There is no adnexal mass. There is moderate free fluid without clear clot. IMPRESSION: 1. Single intrauterine gestation measuring 5 weeks 2 days. No pole is yet detectable. Ongoing follow-up is recommended. 2. 2 cm corpus luteum versus hemorrhagic cyst in the left ovary. Electronically signed by: Eloisa Arguelles MD (05/20/2018 5:35 PM) [facility] [place]
[2018-05-20 18:00] VITALS: BP 111/61
== END 2018-05-20 18:07 | disposition home or self-care (01) ==
LOC: ER 15:29
DX: O46.91 Antepartum hemorrhage, unspecified, first trimester (principal); G89.29 Other chronic pain; Z3A.01 Less than 8 weeks gestation of pregnancy
CPT/HCPCS: 36415; 76801; 76817; 80053; 81001; 84702; 85025; 87086; 99284-25